=== PATIENT | female | born 1955 | race Caucasian/White ===

== ENCOUNTER 2023-05-31 10:01 | Emergency (ER) | payer MEDICARE, SELFPAY ==
[2023-05-31 10:08] VITALS: BP 145/91; PULSE 72; RESP 16; TEMP 36.5; O2SAT 99
--- NOTE | 2023-05-31 10:29 | ED.URI ---
HPI - URI/Sore Throat General Chief Complaint: Upper Respiratory Infection Stated Complaint: Sore Throat;Congestion Time Seen by Provider: 05/31/23 10:19 Source: patient and RN notes reviewed Mode of arrival: ambulatory Limitations: no limitations History of Present Illness HPI Narrative: Patient presents today complaining of fatigue, nasal congestion, and right ear clogging, sore throat since last night, with cough since this morning. Denies fever, shortness of breath, chest pain. She currently rates her pain 4/10 and took NyQuil last night with mild relief. No known sick contacts. Related Data Home Medications Medication Instructions Recorded Confirmed hydrochlorothiazide 12.5 mg tablet 1,205 mg PO DAILY 05/30/23 05/31/23 levothyroxine 100 mcg tablet 100 mcg PO DAILY 05/30/23 05/31/23 albuterol sulfate 90 mcg/actuation 2 inh inhalation DIRECTED 05/31/23 05/31/23 aerosol inhaler Allergies Allergy/AdvReac Type Severity Reaction Status Date / Time amoxicillin [From Augmentin] AdvReac Diarrhea Verified 05/31/23 10:23 clavulanic acid AdvReac Diarrhea Verified 05/31/23 10:23 [From Augmentin] Review of Systems Review of Systems: CONSTITUTIONAL: Denies body aches, fever, chills, or sweats.+ fatigue EYES: Denies visual changes, redness, or discharge. ENT: Denies rhinorrhea. + congestion, sore throat, ear clogging CARDIOVASCULAR: Denies chest pain, palpitations, or edema. RESPIRATORY: Denies dyspnea.+ cough GASTROINTESTINAL: Denies abdominal pain, nausea, vomiting, or diarrhea. GENITOURINARY: Denies dysuria or hematuria. SKIN: Denies rash, itching, or wounds. MUSCULOSKELETAL: Denies back pain, joint pain, or myalgia. NEUROLOGIC: Denies headache, numbness, tingling, or weakness. PSYCH: Denies depression or anxiety. [facility] Social History Social History Smoking status: Never smoker Alcohol intake: current Alcohol use details: 2 per month Substance use: never Substance use type: does not use Living arrangements: alone Spiritual care concerns: No Comments At time of signature, I have reviewed and agree with nursing past medical, surgical, social and family history unless otherwise noted. Please see nursing chart for further information. There is no relevant family history pertinent to the presenting complaint Exam Narrative: GENERAL: Well-appearing, well-nourished, and in no acute distress. HEAD: Normocephalic, atraumatic. EYES: EOMI. No redness or drainage. Conjunctivae normal. ENT: Mucous membranes pink and moist. Nares clear. No rhinorrhea. TMs normal bilaterally. Throat normal with small amount of postnasal drainage. Uvula midline. NECK: Normal AROM. Supple. No lymphadenopathy. CHEST: No respiratory distress. Clear to auscultation. HEART: Regular rate and rhythm. No murmur appreciated. EXTREMITIES: Normal range of motion. No edema. SKIN: Warm, dry, no rash. Capillary refill normal. Normal skin turgor. NEURO: No focal deficits. Alert and oriented x3. Gait steady. PSYCH: Normal affect. No signs of depression or anxiety. Course Course Level of Care: Express Care Visit Vital Signs Vital signs: Vital Signs Temperature 97.7 F 05/31/23 10:08 Pulse Rate 72 05/31/23 10:08 Respiratory Rate 16 05/31/23 10:08 Blood Pressure 145/91 H 05/31/23 10:08 Pulse Oximetry 99 05/31/23 10:08 Temperature 97.7 F 05/31/23 10:08 Pulse Rate 72 05/31/23 10:08 Respiratory Rate 16 05/31/23 10:08 Blood Pressure 145/91 H 05/31/23 10:08 Pulse Oximetry 99 05/31/23 10:08 Reviewed MDM - URI/Sore Throat MDM Narrative Medical decision making narrative: All testing negative. Symptoms likely viral in etiology. Discussed [id number] medication. No prescription medication indicated at this time. Anticipatory guidance given. Differential Diagnosis Differential diagnosis: Likely upper respira
== END 2023-05-31 10:37 | disposition home or self-care (01) ==
PROVIDERS: Emergency Provider Nurse Practitioner
DX: J06.9 Acute upper respiratory infection, unspecified (principal); Z20.822 Contact with and (suspected) exposure to COVID-19; I10 Essential (primary) hypertension; M19.90 Unspecified osteoarthritis, unspecified site; E03.9 Hypothyroidism, unspecified
CPT/HCPCS: 87081; 87426; 87804; 87880; 99213; C9803; G0463

== ENCOUNTER 2023-07-30 01:22 | Day surgery (SDC) | payer MEDICARE, SELFPAY ==
[2023-05-30 10:53] VITALS: BMI 42.1
[2023-07-04 15:03] VITALS: BMI 42.1
--- NOTE | 2023-07-28 12:02 | SUR.PREOP ---
Patient called regarding upcoming procedure. Message left on pt's voicemail regarding appointment times.
--- NOTE | 2023-07-29 16:18 | PM.HPGS ---
History of Present Illness History of Present Illness Consent: Risks, benefits, and alternatives have been discussed and questions answered. Patient agrees to proceed with procedure. Chief complaint: neoplasm screening Narrative: Urmila Haley is a 67 year old female referred for colon cancer screening. Review of Systems Review of Systems: All systems reviewed & are unremarkable except as noted in HPI and below PMFSH Social History Social History Smoking status: Never smoker Alcohol intake: current Alcohol use details: 2 per month Substance use: never Substance use type: does not use Living arrangements: alone Spiritual care concerns: No Meds Home Medications and Allergies Home Medications Medication Instructions Recorded Confirmed Type hydrochlorothiazide 12.5 mg tablet 1,205 mg PO DAILY 05/30/23 07/30/23 History levothyroxine 100 mcg tablet 100 mcg PO DAILY 05/30/23 07/30/23 History albuterol sulfate 90 mcg/actuation 2 inh inhalation DIRECTED 05/31/23 07/30/23 History aerosol inhaler Allergies Allergy/AdvReac Type Severity Reaction Status Date / Time amoxicillin [From Augmentin] AdvReac Diarrhea Verified 07/30/23 07:23 clavulanic acid AdvReac Diarrhea Verified 07/30/23 07:23 [From Augmentin] Exam Const: General: alert Orientation/consciousness: patient oriented x3 Resp: Auscultation: clear to auscultation bilaterally Cardio: Rhythm: regular rhythm GI: GI Palp: Yes Soft to palpation and No Tenderness to palpation present (GI) Neuro: General: patient oriented x3 Assessment and Plan Assessment and plan (1) Colon cancer screening: Code(s): Z12.11 - Encounter for screening for malignant neoplasm of colon Status: Acute Assessment and Plan: Colonoscopy with possible biopsy or polypectomy or cautery or injection of substances.
[2023-07-30 07:25] VITALS: PULSE 94; TEMP 36.3; O2SAT 98
[2023-07-30] MEDS: LACTATED RINGERS 1,000 ML 150 ML IV CONT (07:34)
--- NOTE | 2023-07-30 08:02 | P.PNAN_ITS ---
Anes - Initial Pre Proc Eval Procedure: Operation Date: 07/30/23 08:30 Proposed Procedures p Screening Colonoscopy - Chris Hodge MD Date/Time: 07/30/23 08:02 Surgeon: Chris Hodge MD Pre Op Diagnosis: neoplasm screening Patient Data Age: 67 Gender: F Height: 1.6 m Weight: 109.1 kg Last Vital Signs Temp 97.3 F L 07/30/23 07:25 Pulse 94 07/30/23 07:25 Pulse Ox 98 07/30/23 07:25 O2 Del Method Room Air 07/30/23 07:25 Allergies Allergy/AdvReac Type Severity Reaction Status Date / Time amoxicillin [From Augmentin] AdvReac Diarrhea Verified 07/30/23 07:23 clavulanic acid AdvReac Diarrhea Verified 07/30/23 07:23 [From Augmentin] Home Medications Medication Instructions Recorded Confirmed Type hydrochlorothiazide 12.5 mg tablet 1,205 mg PO DAILY 05/30/23 07/30/23 History levothyroxine 100 mcg tablet 100 mcg PO DAILY 05/30/23 07/30/23 History albuterol sulfate 90 mcg/actuation 2 inh inhalation DIRECTED 05/31/23 07/30/23 History aerosol inhaler Patient hx anesthesia problems: none Family hx anesthesia problems: none Results Review: All pre-operative results and documents have been reviewed as part of the pre- operative evaluation. [facility] Social History Social History Smoking status: Never smoker Alcohol intake: current Alcohol use details: 2 per month Substance use: never Substance use type: does not use Living arrangements: alone Spiritual care concerns: No Anes - Eval Final PreProcedure Day of Procedure 07/30/23 08:02 Patient weight: morbidly obese Heart: regular rate and rhythm Lungs: clear to auscultation Airway: Mallampati scale Neurological: alert and oriented Last oral intake: >/= 8 hours ASA classification: III Emergent: no Anesthetic plan: proceed Anesthesia type and monitoring: general GIVS and standard monitoring Results Review: All pre-operative results and documents have been reviewed as part of the pre- operative evaluation. Informed Consent: The patient's anesthetic plan and its attendant risks and benefits were discussed with the patient/family/POA. Questions were solicited and answers provided to the satisfaction of the patient/family/POA.
[2023-07-30] MEDS: SIMETHICONE ORAL SUSPENSION 20 MG/0.3 ML 30 ML BOTTLE 0.6 ML IRRIGATION (08:47)
[2023-07-30 08:58] VITALS: BP 133/72; PULSE 83; RESP 18; O2SAT 100
[2023-07-30 09:08] VITALS: BP 129/69; PULSE 73; RESP 18; O2SAT 100
[2023-07-30 09:16] VITALS: BP 135/76; PULSE 71; RESP 18; O2SAT 100
== END 2023-07-30 09:31 | disposition home or self-care (01) ==
PROVIDERS: Visit Provider Internal Medicine Gastroenterology
PROC: 0DJD8ZZ Inspection of Lower Intestinal Tract, Via Natural or Artificial Opening Endoscopic (ICD-10-PCS; CPT 45378; principal; 2023-07-30 08:30)
DX: Z12.11 Encounter for screening for malignant neoplasm of colon (principal); K57.30 Diverticulosis of large intestine without perforation or abscess without bleeding; Z79.51 Long term (current) use of inhaled steroids; E66.01 Morbid (severe) obesity due to excess calories; Z68.41 Body mass index [BMI] 40.0-44.9, adult
CPT/HCPCS: G0121; J2704; J7120